=== PATIENT | male | born 1990 | race Hispanic/Latino ===

== ENCOUNTER 2016-12-31 09:14 | Emergency (ER) | payer OTHER ==
[2016-12-31 09:22] VITALS: BP 151/111; PULSE 115; TEMP 98.5
[2016-12-31 09:23] VITALS: BMI 22.4
[2016-12-31] MEDS ORDERED: Oxycodone/Acetaminophen 5/325 mg Tab PO STA (09:44)
--- NOTE | 2016-12-31 10:28 | ED PDOC ---
HPI: Dental Pain/Injury Time Seen by Provider: 12/31/16 09:39 Chief Complaint (Nursing): Dental Pain Chief Complaint (Provider): dental pain History Per: Patient History/Exam Limitations: no limitations Current Symptoms Are (Timing): Still Present Severity: Severe Quality: Sharp Additional Complaint(s): 26yo male c/o R lower molar pain since last night when he bit into a halls cough drop cracking L lower molar. Stated attempted to see dentist could not obtain appt today. Denies fever, swelling or difficulty swallowing. Refused IM injection for pain. Past Medical History Reviewed: Historical Data, Nursing Documentation, Vital Signs Vital Signs: Last Vital Signs Temp 98.5 F 12/31/16 09:22 Pulse 115 H 12/31/16 09:22 Resp 20 12/31/16 09:22 BP 151/111 H 12/31/16 09:22 Pulse Ox 98 12/31/16 09:22 - Medical History PMH: No Chronic Diseases - Social History Ex-Smoker (has not smoked in the last 12 months): Yes (quit recently) Drugs: Denies - Allergies Allergies/Adverse Reactions: Allergies Allergy/AdvReac Type Severity Reaction Status Date / Time No Known Allergies Allergy Verified 12/31/16 09:54 Review of Systems Constitutional: Negative for: Fever, Chills ENT: Positive for: Mouth Pain. Negative for: Ear Pain Respiratory: Negative for: Cough, Shortness of Breath Genitourinary Male: Negative for: Dysuria, Frequency Neurological: Negative for: Weakness, Numbness, Headache Physical Exam - Reviewed Nursing Documentation Reviewed: Yes Vital Signs Reviewed: Yes - Physical Exam Appears: Positive for: Well, Non-toxic, No Acute Distress Head Exam: Positive for: ATRAUMATIC, NORMAL INSPECTION, NORMOCEPHALIC Skin: Positive for: Normal Color, Warm, DRY Eye Exam: Positive for: EOMI, Normal appearance, PERRL ENT: Positive for: Other (R lower molar +necrotic and mild erythema) Neck: Positive for: Normal, Painless ROM Back: Positive for: Normal Inspection Extremity: Positive for: Normal ROM Neurologic/Psych: Positive for: Alert, Oriented. Negative for: Motor/Sensory Deficits - ECG O2 Sat by Pulse Oximetry: 98 Medical Decision Making Medical Decision Making: pain meds initiated. Dental referral encouraged. 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
[2016-12-31] MEDS ORDERED: Oxycodone/Acetaminophen 5/325 mg Tab ONE (10:32)
[2016-12-31 11:55] VITALS: RESP 18; O2SAT 99
== END 2016-12-31 11:55 | disposition home or self-care (01) ==
LOC: H.ER 09:14
DX: K08.89 Other specified disorders of teeth and supporting structures (principal)